=== PATIENT | male | born 1965 | race Caucasian/White ===

== ENCOUNTER → 2017-04-01 | Outpatient (CLI) | payer OTHER ==
[~2017-04-01] MED LIST: ALTACE; CATAPRES-TTS-20.2 MG PO; FISH OIL 1,0001 CAP; LOPRESSOR PO; TOPROL XL; VICODIN 5/500 T1 TAB PO
--- NOTE | ~2017-04-01 | MR113 ---
[facility] A Service of [facility] & [facility] RADIOLOGY TEXT RESULTS PATIENT: KEVIN CORDOVA JR LOCATION: [facility] : 63 UNIT #: [id number] AGE: [address]: Alejandro Ortiz MD SEX: M ORDER DR: [id number] [facility] [address] [place], [place] [address] [id number] O MR#: [id number] Acc #: [id number] NAME: KEVIN CORDOVA : 1965 SEX: M STUDY DATE/TIME: 04/01/2017 15:05 UNIT: [facility] ROOM: STUDY DESCRIPTION: MR Lumbar Wo Contrast Attending Physician: Alejandro Ortiz M.D. Referring Physician: Alejandro Ortiz M.D. Ordering Physician: Alejandro Ortiz M.D. Primary Care Physician: Alejandro Ortiz M.D. MRI CENTER REPORT This report is preliminary unless electronic signature is present. EXAM Lumbar spine MRI without HISTORY Left lower extremity radiculopathy. Pain radiates down left leg for 4 weeks. The patient has had steroids, muscle relaxants, and pain medications for 3 weeks, but it is not improving. History of surgery in 1990 for right-sided pain. No trauma. History of renal cell carcinoma. TECHNIQUE MRI of the lumbar spine performed without contrast using routine 1.5-T imaging technique. FINDINGS There is degenerative retrolisthesis L5 on S1, measuring about 5 mm, and associated with mild disc desiccation and loss of intervertebral disc height. Mild multilevel loss of intervertebral disc height, disc desiccation, and Schmorl node formation is noted. Mild chronic anterior wedging at T12. No acute fracture. The conus medullaris terminates at L1-2 and is normal. Bone marrow signal intensity is unremarkable, allowing for minor marrow endplate degenerative changes. At L1-2, there is mild bilateral facet degenerative change. Mild ligamentum flavum thickening. There is a mild concentric disc bulge with a small superimposed central protrusion. There is mild effacement of the thecal sac and some prominence of the posterior epidural fat pad. There is no significant foraminal impingement. At L2-3, there is [id number] bilateral facet degenerative change with mild concentric disc bulge and some minor endplate spondylosis. Epidural fat pads prominent. There is mild canal stenosis. Disc material extends into the inferior foramina. There is mild bilateral inferior foraminal narrowing. [facility]. [facility] A Service of [facility] RADIOLOGY TEXT RESULTS PATIENT: KEVIN CORDOVA JR [facility] : 63 UNIT #: [id number] AGE: [address]: Alejandro Ortiz MD SEX: M ORDER DR: At L3-4, there is mild left and mild to moderate right-sided facet degenerative change with mild ligamentum flavum thickening. There is a right posterolateral disc protrusion which impinges upon the expected location of the right L3 root within and lateral to the foramen. Mild effacement of the anterior thecal sac. Mild prominence of the posterior epidural fat pad. Mild to moderate right-sided foraminal impingement. At L4-5, mild left and mild to moderate right-sided facet degenerative change with ligamentum flavum thickening. There is a left paramedian disc extrusion extending caudad from the disc level, but remaining contiguous with it. It results in focal mass effect on expected location left L5 root in the left lateral recess. It measures about 1.2 cm ML dimension x 1 cm SI dimension x 0.5 cm AP dimension. The epidural fat pad is prominent. The combination of findings results in mild to moderate central canal stenosis, and there is mild right inferior foraminal narrowing. At L5-S1, there is a large disc extrusion that extends cephalad from the disc in the left paramedian to posterolateral location. It is minimally contiguous with the disc, and the extrusion lies in the left lateral recess posterior to the lower 2/3 of the L5 vertebral body. It measures about 1.9 cm SI dimension x 0.8 cm AP dimension x 1.3 cm ML dimension. It results in mass effect upon expected location of the left L5 root and the left S1 root. There is some impingement upon the medial aspect of the left L5-S1 foramen. Please correlate with the left extremity radicular symptoms. Otherwise, mild canal stenosis. Mild to moderate bilateral foraminal narrowing. 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 There is a sclerotic lesion in the S1 segment about 1 cm in dimension. On review of a CT scan of the abdomen and pelvis from 03/19/2016, this was present at that time and appears to be unchanged and is probably a bone island. It was also present in 2012 and appears to be unchanged from that time. The remote postoperative changes are probably at the L5-S1 level, consistent with a right-sided laminectomy. Correlation with the operative noted would be suggested. IMPRESSION 1. Lumbar degenerative changes are detailed above. Findings are most significant at L5-S1 and L4-L5 levels. At the L5-S1 level, there is a large disc extrusion extending cephalad from the disc, left paramedian to posterolateral location, filling the left lateral recess posterior to the lower 2/3 of the L5 vertebral body. It impinges upon expected location of the left L5 root and left S1 root. [facility] A Service of [facility] RADIOLOGY TEXT RESULTS PATIENT: KEVIN CORDOVA JR LOCATION: [facility] : 63 UNIT #: [id number] AGE: [address]: Alejandro Ortiz MD SEX: M ORDER DR: See full description above. 2. Smaller disc extrusion at the L4-5 level also impinges upon expected location of left L5 root. 3. Please see the above description of multilevel canal and foraminal compromise. Component of epidural lipomatosis contributes to the canal compromise. STAT * RESULT Dictated by... Raissa Galeas M.D. THIS IS AN ELECTRONICALLY VERIFIED REPORT Raissa Galeas M.D. at 04/01/2017 6:17 PM ANA/velma TD: 04/01/2017 16:10 JOB #: [id number] MRI CENTER REPORT Page 1 of 1 COPY
== END | disposition home or self-care (01) ==
LOC: CMRI 14:29
DX: M51.16 Intervertebral disc disorders with radiculopathy, lumbar region (principal); M47.26 Other spondylosis with radiculopathy, lumbar region; M99.81 Other biomechanical lesions of cervical region; M51.17 Intervertebral disc disorders with radiculopathy, lumbosacral region; M48.06 Spinal stenosis, lumbar region; M89.9 Disorder of bone, unspecified
CPT/HCPCS: 72148